=== PATIENT | female | born 1995 | race African-American/Black ===

== ENCOUNTER 2017-07-28 11:34 | Emergency (ER) | payer OTHER ==
--- NOTE | 2017-07-28 12:54 | ER Document Report ---
HPI - HPI Pain Level: 1 Notes: Patient is a 21-year-old female with no significant past medical history who presents the ED complaining of an episode of scant blood from her left ear this morning. Patient states that she does utilize Q-tips every day. She has not had any changes in her hearing or tinnitus. She denies any dizziness. She denies any recent illness. She has no other concerns or complaints associated. She denies any drug allergies. Patient also denies any smoking or IV drug use. Denies any headache, fever, head injury, neck pain, changes in vision/ speech/mentation/hearing, URI, sore throat, chest pain, palpitations, syncope, cough, shortness of breath, wheeze, dyspnea, abdominal pain, nausea/vomiting/ diarrhea, urinary retention, dysuria, hematuria, or rash. - ROS Notes: REVIEW OF SYSTEMS: CONSTITUTIONAL : Denies fever, chills, or sweats. Denies recent illness. EENT: see hpi CARDIOVASCULAR: Denies chest pain. Denies palpitations or racing or irregular heart beat. RESPIRATORY: Denies cough, cold, or chest congestion. Denies shortness of breath, difficulty breathing, or wheezing. GASTROINTESTINAL: Denies abdominal pain or distention. Denies nausea, vomiting , or diarrhea. GENITOURINARY: Denies difficulty urinating, painful urination, burning, frequency, blood in urine, or discharge. MUSCULOSKELETAL: Denies back or neck pain or stiffness. Denies joint pain or swelling. SKIN: see hpi NEUROLOGICAL: Denies confusion or altered mental status. Denies passing out or loss of consciousness. Denies dizziness or lightheadedness. Denies headache. Denies problems with gait or speech. Denies sensory loss, numbness , or tingling. Denies seizures. ALL OTHER SYSTEMS REVIEWED AND NEGATIVE. Dictation was performed using [employer] voice recognition software - CONSTITUTIONAL Constitutional: DENIES: Fever, Chills - EENT EENT: REPORTS: Ear Pain - dried blood. DENIES: Sore Throat, Eye problems - REPRODUCTIVE Reproductive: DENIES: : Past Medical History - Social History Smoking Status: Never Smoker Chew tobacco use (# tins/day): No Frequency of alcohol use: Social Drug Abuse: None Family History: Reviewed & Not Pertinent Patient has suicidal ideation: No Patient has homicidal ideation: No Renal/ Medical History: Denies: Hx Peritoneal Dialysis Past Surgical History: Reports: Hx Appendectomy - Immunizations Hx Diphtheria, Pertussis, Tetanus Vaccination: Yes Vertical Provider Document - CONSTITUTIONAL Agree With Documented VS: Yes Notes: PHYSICAL EXAMINATION: GENERAL: Well-appearing, well-nourished and in no acute distress. HEAD: Atraumatic, normocephalic. EYES: Pupils equal round and reactive to light, extraocular movements intact, sclera anicteric, conjunctiva are normal. ENT: Left EAC shows a small abrasion superficially with scant dried blood (same as the rt EAC). No abscess, purulence, or streaks. TM's intact b/l without erythema, fluid, or perforation. Nares patent and without discharge. oropharynx clear without exudates. No tonsilar hypertrophy or erythema. Moist mucous membranes. No sinus tenderness. No mastoid tenderness. NECK: Normal range of motion, supple without lymphadenopathy LUNGS: Breath sounds clear to auscultation bilaterally and equal. No wheezes rales or rhonchi. HEART: Regular rate and rhythm without murmurs, rubs, gallops. NEUROLOGICAL: Cranial nerves grossly intact. Normal speech, normal gait. Normal sensory, motor exams PSYCH: Normal mood, normal affect. SKIN: see ENT exam. Warm, Dry, normal turgor, no rashes or lesions noted. - INFECTION CONTROL TRAVEL OUTSIDE OF THE [place] IN LAST 30 DAYS: No - RESPIRATORY O2 Sat by Pulse Oximetry: 99 Course - Re-evaluation Re-evalutation: 07/28/17 14:12 Patient is an afebrile, well-hydrated, 21-year-old female who presents the ED with an abrasion to her bilateral EAC most likely secondarily to Q-tip use. Vitals are stable. PE is otherwise unremarkable. There is no superimposed infection at this time. Recommend conservative measures for symptoms. Recheck with your PCM in 3-5 days. Return to the ED with any worsening/concerning symptoms otherwise as reviewed discharge. Patient is in agreement. - Vital Signs Vital signs: Temp Pulse Resp BP Pulse Ox 98.4 F 84 16 129/71 H 99 07/28/17 11:41 07/28/17 11:41 07/28/17 11:41 07/28/17 11:41 07/28/17 11:41 Discharge - Discharge Clinical Impression: Ear canal abrasion Qualifiers: Encounter type: initial encounter Laterality: unspecified laterality Qualified Code(s): S00.419A - Abrasion of unspecified ear, initial encounter Condition: Stable Disposition: HOME, SELF-CARE Additional Instructions: Keep the ears clean Use triple antibiotic ointment Avoid use of Q-tips in the canals for cleaning the ears Tylenol/ibuprofen if needed Maintain fluid intake Monitor for worsening symptoms Recheck with PCM in 3-5 days Return to the ED with any worsening symptoms and/or development of fever, headache, worsening bleeding, tinnitus, hearing loss, chest pain, palpitations, syncope, shortness of breath, trouble breathing, abdominal pain, n/v/d, blood in stool/urine, or other worsening symptoms that are concerning to you. Forms: Elevated Blood Pressure Referrals: TODD ESPARZA DO [ASSOCIATE] - Follow up as needed
[2017-07-28 13:23] VITALS: BP 111/68
== END 2017-07-28 13:23 | disposition home or self-care (01) ==
LOC: ER 11:34
DX: S00.419A Abrasion of unspecified ear, initial encounter (principal); H92.22 Otorrhagia, left ear; X58.XXXA Exposure to other specified factors, initial encounter
CPT/HCPCS: 99282

== ENCOUNTER 2017-08-17 16:10 | Emergency (ER) | payer OTHER ==
[2017-08-17 16:28] VITALS: BP 114/65
--- NOTE | 2017-08-17 17:09 | ER Document Report ---
ED General - General Chief Complaint: Ear Pain Stated Complaint: LEFT EAR PAIN TRAVEL OUTSIDE OF THE [place] IN LAST 30 DAYS: No - HPI Notes: 21-year-old presents today with complaints of presents today with complaints of nasal congestion, sinus pain and pressure, teeth pain when bending over, sore throat, left ear pain and headache x 2 weeks. Denies cough. Pain 7/10, throbbing and constant. Denies any rashes. Tried otc cold medications without relief. Denies any cp, sob, n/v/d. reports fevers and chills. Eating and drinking ok. Worse when laying flat, better when upright. Denies any chest pain , shortness of breath, nausea, vomiting, diarrhea, abdominal pain, dysuria, lightheadedness, dizziness, blurred vision, double vision, loss of vision. - Related Data Allergies/Adverse Reactions: No Known Allergies Allergy (Verified 07/28/17 11:35) Past Medical History - General Information source: Patient - Social History Smoking Status: Unknown if Ever Smoked Family History: Reviewed & Not Pertinent Patient has suicidal ideation: No Patient has homicidal ideation: No Renal/ Medical History: Denies: Hx Peritoneal Dialysis Past Surgical History: Reports: Hx Appendectomy - Immunizations Hx Diphtheria, Pertussis, Tetanus Vaccination: Yes Review of Systems - Review of Systems Constitutional: No symptoms reported EENT: See HPI Cardiovascular: No symptoms reported Respiratory: No symptoms reported Gastrointestinal: No symptoms reported Genitourinary: No symptoms reported Female Genitourinary: No symptoms reported Musculoskeletal: No symptoms reported Skin: No symptoms reported Hematologic/Lymphatic: No symptoms reported Neurological/Psychological: No symptoms reported Physical Exam - Vital signs Vitals: Temp Pulse Resp BP Pulse Ox 98.6 F 80 14 114/65 100 08/17/17 16:27 08/17/17 16:27 08/17/17 16:27 08/17/17 16:27 08/17/17 16:27 Interpretation: Normal - Notes Notes: PHYSICAL EXAMINATION: GENERAL: Mildly ill-appearing, but in no acute distress. HEAD: Atraumatic, normocephalic. EYES: Pupils equal round and reactive to light, extraocular movements intact, sclera anicteric, conjunctiva are normal. ENT: ear canals without erythema or foreign body, TMs pearly garcía with good bony landmarks, noted effusion bilaterally. No erythema. Nares with mucoid discharge , oropharynx erythematous without enlarged tonsils without exudates. Moist mucous membranes. left maxillary and frontal sinuses tender to palpation NECK: Normal range of motion, supple without lymphadenopathy LUNGS: CTAB and equal. No wheezes rales or rhonchi. HEART: Regular rate and rhythm without murmurs EXTREMITIES: Normal range of motion, no pitting edema. No cyanosis. NEUROLOGICAL: Cranial nerves grossly intact. Normal sensory/motor exams. PSYCH: Normal mood, normal affect. SKIN: Warm, Dry, normal turgor, no rashes or lesions noted Course - Re-evaluation Re-evalutation: 08/17/17 17:06 Take antibiotic with food. Advised to return to the ER if any signs or symptoms became worse. Take [id number] Motrin and Tylenol as needed for any fevers or pain. Follow up with primary care within 1-2 days. All questions and concerns answered by this provider. Patient/family states would follow plan of care and agreed to plan of care. Patient was discharged home and off unit without incident. Please excuse any errors in this document was done by dragon dictation. 08/17/17 17:14 After performing a Medical Screening Examination, I estimate there is LOW risk for ACUTE CORONARY SYNDROME, PULMONARY EMBOLI, RESPIRATORY FAILURE, SEPSIS OR MENINGITIS, thus I consider the discharge disposition reasonable. I have reevaluated this patient multiple times and no significant life threatening changes are noted. The patient and I have discussed the diagnosis and risks, and we agree with discharging home with close follow-up. We also discussed returning to the Emergency Department immediately if new or worsening symptoms occur. We have discussed the symptoms which are most concerning (e.g., changing or worsening pain, trouble swallowing or breathing, neck stiffness, fever) that necessitate immediate return. - Vital Signs Vital signs: Temp Pulse Resp BP Pulse Ox 98.6 F 80 14 114/65 100 08/17/17 16:27 08/17/17 16:27 08/17/17 16:27 08/17/17 16:27 08/17/17 16:27 Discharge - Discharge Clinical Impression: Acute bacterial sinusitis Condition: Good Disposition: HOME, SELF-CARE Instructions: Sinusitis ([facility]) Additional Instructions: Sinusitis You have sinusitis, an infection of the sinus cavities of the face. The sinuses are air-filled chambers which open into the inside of the nose. Bacteria and pus fill a sinus, causing pain, drainage, and fever. Sinusitis is treated with antibiotics. Often, expectorants (to thin the sinus mucous) or decongestants (to reduce swelling) are prescribed as well. Healing requires seven to 10 days. Avoid chemical fumes, pollens, dusts, and smoke (especially cigarette smoke ). Keep the air humidified in your bedroom and work area and take plenty of liquids by mouth. This condition can be serious if the infection spreads. If your symptoms worsen, or if you develop severe headache, high fever, stiff neck, or a rash, you must call the doctor or return for re-evaluation. Return immediately for any new or worsening symptoms. Follow up with primary care provider, call tomorrow to make followup appointment. Prescriptions: Amoxicillin Trihydrate [Amoxil 500 mg Capsule] 500 mg PO TID #30 capsule Meloxicam 7.5 mg PO DAILY #7 tablet Referrals: BLAKE HANSEN MD [COMMUNITY BASED STAFF] - Follow up in 1 week
== END 2017-08-17 17:17 | disposition home or self-care (01) ==
LOC: ER 16:10
DX: J01.90 Acute sinusitis, unspecified (principal); B96.89 Other specified bacterial agents as the cause of diseases classified elsewhere; H92.02 Otalgia, left ear; R09.81 Nasal congestion; J34.89 Other specified disorders of nose and nasal sinuses; K08.89 Other specified disorders of teeth and supporting structures; J02.9 Acute pharyngitis, unspecified; R51 Headache
CPT/HCPCS: 99282

== ENCOUNTER 2019-07-16 15:47 | Emergency (ER) | payer OTHER ==
[2019-07-16 15:53] VITALS: BP 127/74
--- NOTE | 2019-07-16 16:15 | ER Document Report ---
HPI - HPI Time Seen by Provider: 07/16/19 15:56 Context: Patient is a 23-year-old female who presents to the emergency department with a chief complaint of sore throat, cough, and fever. Patient took some TheraFlu earlier to help with her symptoms. She also had DayQuil. Patient broke out in a rash on her chin after taking these medications. Patient states that a coworker of hers had the same symptoms. Denies any pruritus or erythema. Denies any trauma to her chin. - CONSTITUTIONAL Constitutional: REPORTS: Fever - EENT EENT: REPORTS: Sore Throat, Nasal Drainage-Clear. DENIES: Ear Pain, Nasal Drainage-Purulent, Congestion, Eye problems - CARDIOVASCULAR Cardiovascular: DENIES: Chest pain - RESPIRATORY Respiratory: REPORTS: Coughing - GASTROINTESTINAL Gastrointestinal: DENIES: Abdominal Pain, Nausea, Patient vomiting, Diarrhea - REPRODUCTIVE Reproductive: DENIES: : - DERM Skin Color: Normal Skin Problems: Rash - inferior chin; denies pruritus Past Medical History - General Information source: Patient - Social History Smoking Status: Never Smoker Family History: Reviewed & Not Pertinent Renal/ Medical History: Denies: Hx Peritoneal Dialysis Past Surgical History: Reports: Hx Appendectomy - Immunizations Hx Diphtheria, Pertussis, Tetanus Vaccination: Yes Vertical Provider Document - CONSTITUTIONAL Agree With Documented VS: Yes Exam Limitations: No Limitations General Appearance: No Apparent Distress - INFECTION CONTROL TRAVEL OUTSIDE OF THE [place] IN LAST 30 DAYS: No - HEENT HEENT: Atraumatic, Normocephalic, PERRLA - NECK Neck: Normal Inspection, Supple. negative: Lymphadenopathy-Left, Lymphadenopathy-Right - RESPIRATORY Respiratory: Breath Sounds Normal, No Respiratory Distress - CARDIOVASCULAR Cardiovascular: Regular Rate, Regular Rhythm Pulses: Normal: Radial - MUSCULOSKELETAL/EXTREMETIES Musculoskeletal/Extremeties: FROM - NEURO Level of Consciousness: Awake, Alert, Appropriate Motor/Sensory: No Motor Deficit, No Sensory Deficit - DERM Integumentary: Warm, Dry, Rash - inferior chin; non blanchable Course - Re-evaluation Re-evalutation: 07/16/19 17:01 Patient's rapid strep test and influenza screen are both negative. I have a very low suspicion for scarlet fever, as the patient's rash is on her chin. It looks more like irritation to her chin. I have advised her to follow-up with her primary care provider. She is in agreement with this plan. Follow-up precautions were given. Verbal discharge instructions were given to the patient. They verbalized understanding. They are stable for discharge. - Vital Signs Vital signs: Temp Pulse Resp BP Pulse Ox 98.4 F 96 18 127/74 H 98 07/16/19 15:52 07/16/19 15:52 07/16/19 15:52 07/16/19 15:52 07/16/19 15:52 Discharge - Discharge Clinical Impression: Sore throat Fever Qualifiers: Fever type: unspecified Qualified Code(s): R50.9 - Fever, unspecified Condition: Stable Disposition: HOME, SELF-CARE Instructions: Sore Throat ([facility]) Additional Instructions: You were seen today in the emergency department for sore throat, fever, and rash to your chin. Your rapid strep test was negative. It will be sent for culture. If the culture is positive, someone will call you and then a prescription. You most likely have an upper respiratory viral infection. As for your rash, the cause is not clear. Please stick to taking ibuprofen 600 mg and acetaminophen 1000 mg every 6 hours. Please establish a primary care provider. If you have worsening symptoms, please return to the emergency department. Forms: Return to Work Referrals: WON CARLSON FNP [NURSE PRACTITIONER] - Follow up as needed
[2019-07-16 16:51] LABS: A TYPE INFLUENZA AG NEGATIVE (NEGATIVE); B INFLUENZA AG NEGATIVE (NEGATIVE)
== END 2019-07-16 17:20 | disposition home or self-care (01) ==
LOC: ER 15:47
DX: J02.9 Acute pharyngitis, unspecified (principal); R50.9 Fever, unspecified; R05 Cough; R21 Rash and other nonspecific skin eruption; R09.89 Other specified symptoms and signs involving the circulatory and respiratory systems
CPT/HCPCS: 87070; 87804; 87880; 99283